=== PATIENT | male | born 1970 | race Caucasian/White ===

== ENCOUNTER → 2019-04-26 16:05 | Outpatient (CLI) | payer BC, SELFPAY ==
--- NOTE | ~2019-04-26 | XR_ITS ---
EXAMINATION: XR TMJ BI DATE: 04/26/2019 16:41 INDICATION: Jaw pain. Bilateral temporomandibular joint clicking. TECHNIQUE: Open-mouth and closed mouth views of the right and left temporomandibular joints were obta ined for a total of 4 views on 5 radiographs. COMPARISON: None. FINDINGS: The mandibular condyles are normal in morphology. There is normal anterior translation of t he mandibular condyles in the open-mouth position. There are surgical clips in the neck. IMPRESSION: 1. Normal temporomandibular joints. Reviewed, dictated and finalized at location A. TINNER
--- NOTE | ~2019-04-26 | XR_ITS ---
XR cervical spine 4-5V 04/26/2019 16:41 Indication: Cervical spondylosis Procedure: 4 view cervical spine Comparison: No prior studies for comparison. Findings: Vertebral body heights are maintained. No significant disc narrowing. There is mild multile prince uncinate and facet hypertrophy. Lung apices are normal. Odontoid process is normal. No prevertebr al soft tissue swelling. Extensive surgical change present in the neck bilaterally. Impression: 1: Mild cervical spondylosis. Reviewed, dictated and finalized at location A. [employer] TECHNICIAN Impression: 1: Mild cervical spondylosis.
== END ==
PROVIDERS: Visit Provider Internal Medicine
DX: R68.84 Jaw pain (principal); M47.892 Other spondylosis, cervical region
CPT/HCPCS: 70330; 72050

== ENCOUNTER → 2019-09-30 14:15 | Outpatient (CLI) | payer BC, SELFPAY ==
--- NOTE | ~2019-09-30 | XR_ITS ---
XR cervical spine 4-5V 09/30/2019 14:35 Indication: Neck pain Procedure: 5 view cervical spine Comparison: 04/26/2019 Findings: Vertebral body heights are maintained. There is disc narrowing and endplate hypertrophy at C6-7. No prevertebral soft tissue swelling. Lung apices are unremarkable. There are surgical clips in the neck bilaterally. Odontoid process within normal limits. There are mild degenerative changes of the facet and uncinate degenerative joints. Impression: 1: Mild cervical spondylosis. Reviewed, dictated and finalized at location A. Impression: 1: Mild cervical spondylosis.
== END ==
PROVIDERS: Visit Provider Internal Medicine
DX: M47.892 Other spondylosis, cervical region (principal)
CPT/HCPCS: 72050